=== PATIENT | male | born 1940 | race Caucasian/White ===

== ENCOUNTER 2022-05-21 10:40 | Emergency (ER) | payer MEDICARE, BC, SELFPAY ==
[2022-05-21 10:56] VITALS: BP 160/103; PULSE 61; RESP 22; TEMP 36.6; O2SAT 88; BMI 29.5
[2022-05-21 11:00] VITALS: BP 160/103
--- NOTE | 2022-05-21 11:12 | ED.GENADULT ---
HPI - General Adult General Chief complaint: Shortness of Breath/Dyspnea Stated complaint: Pneumonia/has COPD Time Seen by Provider: 05/21/22 11:04 History of Present Illness HPI narrative: Manjinder is an 82yo male patient with known history of COPD and hypertension that presents emergency department via POV with complaints of increasing shortness of breath and productive cough for approximately 4 days. Patient states that he uses 2 L of nasal cannula oxygen at home, typically at night, for his history of COPD. The patient states recently he has had increasing shortness of breath, as noted, and the cough is productive of yellow sputum. He reports he was in his usual state of health prior to onset of symptoms approximately 4 days prior. He denies fever, chills, or sweats. He denies chest pains or palpitations. He denies nausea, vomiting, or diarrhea. He denies known COVID-19 contacts. He reports he is vaccinated. He has not had a COPD exacerbation in the recent past. He denies other acute concerns or complaints. Related Data Home Medications Medication Instructions Recorded Confirmed acetaminophen 325 mg capsule 650 mg PO Q6H PRN 05/21/22 05/21/22 (Tylenol) aspirin 81 mg tablet,delayed 81 mg PO DAILY 05/21/22 05/21/22 release (Adult Aspirin Regimen) cholecalciferol (vitamin D3) 25 25 mcg PO DAILY 05/21/22 05/21/22 mcg (1,000 unit) chewable tablet (VitaJoy Daily D) ipratropium 20 mcg-albuterol 100 1 puff inhalation Q6H PRN 05/21/22 05/21/22 mcg/actuation mist for inhalation (Combivent Respimat) losartan 50 mg-hydrochlorothiazide 1 tab PO DAILY 05/21/22 05/21/22 12.5 mg tablet omega 5-qwm-kvt-fish oil 1,000 mg 1 cap PO DAILY 05/21/22 05/21/22 (120 mg-180 mg) capsule (Fish Oil) potassium citrate 10 mEq (1,080 10 meq PO DAILY 05/21/22 05/21/22 mg) tablet,extended release propranolol 80 mg capsule,24 80 mg PO Q24H 05/21/22 05/21/22 hr,extended release salmeterol 50 mcg/dose blister 1 inh inhalation BID 05/21/22 05/21/22 powder for inhalation (Serevent Diskus) simvastatin 20 mg tablet 20 mg PO DAILY 05/21/22 05/21/22 tamsulosin 0.4 mg capsule 0.4 mg PO Q24H 05/21/22 05/21/22 Previous Rx's Medication Instructions Recorded doxycycline hyclate 100 mg capsule 100 mg PO BID #20 caps 05/21/22 prednisone 10 mg tablet 10 mg PO DAILY #21 tabs 05/21/22 Allergies Allergy/AdvReac Type Severity Reaction Status Date / Time Unable to Assess Allergy Unverified 05/21/22 11:00 Review of Systems Const: Reports: fatigue and malaise; Denies: fever or chills ENMT: Denies: difficulty swallowing, ear pain or nasal congestion Cardio: Reports: shortness of breath with exertion; Denies: chest pain, palpitations or swelling of feet/ankles Resp: Reports: shortness of breath, cough and change in phlegm color GI: Denies: abdominal pain, nausea, vomiting, diarrhea or difficulty swallowing Musculo: Denies: extremity swelling Neuro: Denies: headache, numbness in extremities, weakness in extremities, lack of coordination, dizziness or confusion Endo: Reports: fatigue PFSH PFSH Social History Smoking Status: Never smoker Do you use any of these nicotine containing products: None Second hand tobacco smoke exposure: No How often do you have a drink containing alcohol: never How often do you have six or more drinks on one occasion: Never AUDIT-C Alcohol total score: 0 Non-prescribed substance use: denies use Exam Const: Vital Signs, click to edit/add: Vital Signs - 24 hr 05/21/22 10:56 Temperature 97.9 F Pulse Rate [Pulse Oximeter] 61 Respiratory Rate 22 Blood Pressure [Ri ght Upper Arm] 160/103 H Pulse Oximetry 88 Oxygen Delivery Me thod Room Air Documenting provider has reviewed patient's vital signs: yes Common normals: no apparent distress, oriented x3, no limitations, healthy appearing, alert and well nourished General appearance: cooperative, comfortable, well kempt and well developed; not in distress and not anxious Orientation/consciousness: Yes awake, Yes oriented to person, Yes oriented to place and Yes oriented to time Neck & C-Spine: Common normals: full ROM and no lymphadenopathy Resp: Common normals: normal respiratory effort, no retractions, no use of accessory muscles and clear to auscultation bilaterally Effort & inspection: able to speak in complete sentences Auscultation: clear to auscultation bilaterally; no crackles, no rales, no rhonchi and no wheezes Cardio: Common normals: regular rate, regular rhythm, S1 normal heart sound and S2 normal heart sound Rate: regular rate Rhythm: regular rhythm Heart sounds: S1 normal and S2 normal GI: Common normals: soft to palpation Palpation: soft and firm Extremity: Common normals: normal to inspection and full ROM Neuro: Common normals: oriented x3 Sensorium/orientation: awake, alert, oriented to person, oriented to place and oriented to time Psych: Common normals: mental status grossly normal, thought process normal, cooperative, affect normal and speech normal Appearance: well kempt Attitude: calm Speech: normal speech Thought process: normal thought process Skin: Common normals: no rashes or lesions noted General skin exam: no rashes or lesions noted Course Course Hospital Course: Edward was evaluated with laboratory studies and imaging with results as noted. Patient reports some improvement in symptoms since onset, no significant change while in ED. Patient's vital signs have remained stable. The results were discussed, and the patient verbalized understanding. Reasons for follow-up or return were discussed. Vital Signs Vital signs: Initial Vital Signs Temperature 97.9 F 05/21/22 10:56 Temperature Source Temporal Artery Scan 05/21/22 10:56 Pulse Rate 61 05/21/22 10:56 Respiratory Rate 22 05/21/22 10:56 Blood Pressure 160/103 H 05/21/22 10:56 Blood Pressure Mean 122 05/21/22 10:56 Blood Pressure Position Sitting 05/21/22 10:56 Pulse Oximetry 88 05/21/22 10:56 Oxygen Delivery Method 05/21/22 10:56 Vital Signs Temperature 97.9 F 05/21/22 10:56 Pulse Rate 61 05/21/22 10:56 Respiratory Rate 22 05/21/22 10:56 Blood Pressure 160/103 H 05/21/22 10:56 Pulse Oximetry 88 05/21/22 10:56 Oxygen Delivery Method 05/21/22 10:56 Temperature 97.9 F 05/21/22 10:56 Pulse Rate 61 05/21/22 10:56 Respiratory Rate 22 05/21/22 10:56 Blood Pressure 160/103 H 05/21/22 10:56 Pulse Oximetry 88 05/21/22 10:56 Oxygen Delivery Method 05/21/22 10:56 Medical Decision Making MDM Narrative Medical decision making narrative: Life-threatening differential diagnoses include COVID and other infectious etiology, COPD exacerbation, pulmonary edema, acute coronary syndromes, pulmonary embolism, pneumonia, and pneumothorax. Other differential diagnosis considerations include asthma, bronchitis, as well as other etiologies. Lab Data Labs: Lab Results 05/21/22 05/21/22 05/21/22 Range/Units 11:08 11:31 11:46 WBC 8.65 (4.50-11.00) K/uL RBC 4.11 L (4.30-5.90) m/uL Hgb 13.6 (13.5-17.5) gm/dL Hct 40.7 (37.0-53.0) % MCV 99 (80-100) fL MCH 33 (26-34) pg MCHC 33 (32-36) gm/dL RDW Coeff of Prerna 12.1 (11.5-15.5) % Plt Count 238 (140-440) K/uL Neut % (Auto) 64.3 (42.0-72.0) % Lymph % (Auto) 23.8 (20-44) % Orange % (Auto) 10.3 (0.0-11.0) % Eos % (Auto) 1.2 (0.0-7.0) % Baso % (Auto) 0.2 (0.0-3.0) % Neut # (Auto) 5.56 (1.7-7.0) K/uL Lymph # (Auto) 2.06 (0.90-2.90) K/uL Orange # (Auto) 0.90 (0.00-0.90) K/UL Eos # (Auto) 0.10 (0.00-0.50) K/uL Baso # (Auto) 0.02 (0.00-0.30) K/uL Abs Immat Gran (auto) 0.02 (0.00-0.30) K/uL Sodium (135-149) mmol/L Potassium (3.6-5.1) mmol/L Chloride (96-114) mmol/L Carbon Dioxide (20-32) mmol/L BUN (7-30) mg/dL Creatinine (0.5-1.5) mg/dL Estimated Creat Clear Estimated GFR ml/min Glucose (60-115) mg/dL Calcium (8.4-10.6) mg/dL SARS-CoV-2 (PCR) Cancelled Negative SARS-CoV-2 Influenza Type A (PCR) Negative PCR FLU A (Negative) Influenza Type B (PCR) Negative PCR FLU B (Negative) RSV (PCR) Negative PCR RSV (Negative) 05/21/22 Range/Units 11:46 WBC (4.50-11.00) K/uL RBC (4.30-5.90) m/uL Hgb (13.5-17.5) gm/dL Hct (37.0-53.0) % MCV (80-100) fL MCH (26-34) pg MCHC (32-36) gm/dL RDW Coeff of Prerna (11.5-15.5) % Plt Count (140-440) K/uL Neut % (Auto) (42.0-72.0) % Lymph % (Auto) (20-44) % Orange % (Auto) (0.0-11.0) % Eos % (Auto) (0.0-7.0) % Baso % (Auto) (0.0-3.0) % Neut # (Auto) (1.7-7.0) K/uL Lymph # (Auto) (0.90-2.90) K/uL Orange # (Auto) (0.00-0.90) K/UL Eos # (Auto) (0.00-0.50) K/uL Baso # (Auto) (0.00-0.30) K/uL Abs Immat Gran (auto) (0.00-0.30) K/uL Sodium 140 (135-149) mmol/L Potassium 4.2 (3.6-5.1) mmol/L Chloride 105 (96-114) mmol/L Carbon Dioxide 30 (20-32) mmol/L BUN 19 (7-30) mg/dL Creatinine 0.9 (0.5-1.5) mg/dL Estimated Creat Clear 55.97 Estimated GFR 85 ml/min Glucose 113 (60-115) mg/dL Calcium 8.7 (8.4-10.6) mg/dL SARS-CoV-2 (PCR) Influenza Type A (PCR) (Negative) Influenza Type B (PCR) (Negative) RSV (PCR) (Negative) Imaging Data Chest x-ray: Attestation: I have reviewed the pertinent imaging results. Radiologist's impression: FINDINGS: Bibasilar parenchymal densities. Some of these are chronic. However, there is new linear density within the right midlung zone. Central pulmonary arteries are enlarged, as before. Tortuosity of the aorta. No pneumothorax. Degenerative changes of both shoulders. No large volume pleural effusion. IMPRESSION: Dependent fibrosis/scarring with mild superimposed infiltrate on the right suspected. ECG Data Attestation: I personally reviewed and interpreted this ECG as follows: (Normal axis, HR 56bpm. Sinus bradycardia with artifact noted. Normal intervals. No previous for comparison.) Discharge Plan Discharge Clinical Impression: Acute infective exacerbation of chronic obstructive airway disease, Hypertension Patient Disposition: Home, Self-Care Condition: Stable Additional Instructions: Thank you for choosing [facility] for your care today. Recommend steroid burst and antibiotics due to COPD exacerbation. You should continue to take controller medication as prescribed. Continue current medications otherwise. You should discuss with your primary physician if you are due for PFT. The patient is qualified for using home O2 at 2L as needed to maintain O2 saturation >90%. The patient is advised to continue nebulizer/MDI treatments at the first sign of worsening of condition to assist with future exacerbations. Your care today was on an emergency basis and is not intended to be a substitute for on-going care with your primary physician. I recommend calling primary care for follow-up in the next 7-10 days for follow-up as needed and to review any labs, testing, or imaging you have had in the Emergency Department. If new or worsening symptoms develop or you have any concerns in the meantime, please call your primary care clinic or return to the ER for re-evaluation. Activity Level: Activity as Tolerated Discharge Diet: Heart Healthy (2 gm sodium, low fat) Prescriptions: New prednisone 10 mg tablet 10 mg PO DAILY Qty: 21 0RF Rx Instructions: 6 tabs day 1, 5 tabs day 2, 4 tabs day 3, 3 tabs day 4, 2 tabs day 5, 1 tab day 6 doxycycline hyclate 100 mg capsule 100 mg PO BID Qty: 20 0RF No Action simvastatin 20 mg tablet 20 mg PO DAILY losartan-hydrochlorothiazide 50-12.5 mg tablet 1 tab PO DAILY tamsulosin 0.4 mg capsule 0.4 mg PO Q24H propranolol 80 mg capsule,extended release 24 hr 80 mg PO Q24H potassium citrate 10 mEq (1,080 mg) tablet extended release 10 meq PO DAILY Serevent Diskus 50 mcg/dose blister with device 1 inh inhalation BID Combivent Respimat 20-100 mcg/actuation mist 1 puff inhalation Q6H PRN aspirin [Adult Aspirin Regimen] 81 mg tablet,delayed release (DR/EC) 81 mg PO DAILY cholecalciferol (vitamin D3) [VitaJoy Daily D] 25 mcg (1,000 unit) tablet,chewable 25 mcg PO DAILY omega 3-kfu-lky-fish oil [Fish Oil] 1,000 mg (120 mg-180 mg) capsule 1 cap PO DAILY acetaminophen [Tylenol] 325 mg capsule 650 mg PO Q6H PRN Follow Up/Referrals: Pardeep Watts MD [Primary Care Provider] - Stand Alone Forms: [facility] Info Instructions
--- NOTE | 2022-05-21 11:13 | CRLHL7_ITS ---
For Patients: As a result of the Century Cures Act, medical imaging exams and procedure reports are released immediately into your electronic medical record. You may view this report before your referring provider. If you have questions, please contact your health care provider. INDICATION: Cough TECHNIQUE: Chest 1 view COMPARISON: 10/23/2014 FINDINGS: Bibasilar parenchymal densities. Some of these are chronic. However, there is new linear density within the right midlung zone. Central pulmonary arteries are enlarged, as before. Tortuosity of the aorta. No pneumothorax. Degenerative changes of both shoulders. No large volume pleural effusion. IMPRESSION: Dependent fibrosis/scarring with mild superimposed infiltrate on the right suspected. Dictated by Jhony Arnold MD @ 05/21/2022 11:47:12 AM (Electronically Signed)
[2022-05-21 11:30] VITALS: BP 158/121; PULSE 56; O2SAT 90
[2022-05-21 12:00] VITALS: BP 99/54; PULSE 53; O2SAT 89
[2022-05-21 12:11] LABS: Basophils Absolute Auto 0.02 K/uL (0.00-0.30); Basophils Percent Auto 0.2 % (0.0-3.0); Eosinophils Percent Auto 1.2 % (0.0-7.0); Hematocrit 40.7 % (37.0-53.0); Hemoglobin* 13.6 gm/dL (13.5-17.5); Immature Granulocytes Abs Auto 0.02 K/uL (0.00-0.30); Lymphocytes Absolute Auto 2.06 K/uL (0.90-2.90); Lymphocytes Percent Auto 23.8 % (20-44); Mean Corpuscular HGB Conc 33 gm/dL (32-36); Mean Corpuscular Hemoglobin 33 pg (26-34); Mean Corpuscular Volume 99 fL (80-100); Monocytes Percent Auto 10.3 % (0.0-11.0); Neutrophils Absolute Auto 5.56 K/uL (1.7-7.0); Neutrophils Percent Auto 64.3 % (42.0-72.0); Platelet Count* 238 K/uL (140-440); RDW Coefficient of Variation % 12.1 % (11.5-15.5); Red Blood Count 4.11 m/uL (4.30-5.90); White Blood Count* 8.65 K/uL (4.50-11.00)
[2022-05-21 12:17] LABS: Chloride* 105 mmol/L (96-114); Sodium* 140 mmol/L (135-149)
[2022-05-21 12:18] LABS: Potassium* 4.2 mmol/L (3.6-5.1)
[2022-05-21 12:20] LABS: Carbon Dioxide* 30 mmol/L (20-32); Creatinine* 0.9 mg/dL (0.5-1.5); Est. Creatinine Clearance* 55.97; Estimated Glomerular Filt Rate 85 ml/min
[2022-05-21 12:21] LABS: Blood Urea Nitrogen* 19 mg/dL (7-30); Calcium* 8.7 mg/dL (8.4-10.6); Glucose* 113 mg/dL (60-115)
[2022-05-21 12:23] LABS: Slide Review Reflex No
[2022-05-21 12:25] LABS: PCR FLU A Negative PCR FLU A (Negative); PCR FLU B Negative PCR FLU B (Negative); PCR RSV Negative PCR RSV (Negative); SARS PCR* Negative SARS-CoV-2 (Negative)
[2022-05-21 12:30] VITALS: BP 110/62; PULSE 55; O2SAT 89
[2022-05-21 13:00] VITALS: BP 150/65; PULSE 50; O2SAT 89
== END 2022-05-21 13:15 | disposition home or self-care (01) ==
PROVIDERS: Emergency Provider Family Medicine; PCP Family Medicine
DX: J44.1 Chronic obstructive pulmonary disease with (acute) exacerbation (principal); I10 Essential (primary) hypertension
CPT/HCPCS: 36415; 71045; 80048; 85025; 87502; 87634; 87635; 93005; 99283; 99285

== ENCOUNTER 2022-12-31 09:00 | Outpatient (CLI) | payer MEDICARE, BC, SELFPAY | END 2022-12-31 09:01 | disposition home or self-care (01) | LOC: INJ CL 09:02 | PROVIDERS: PCP Student in an Organized Health Care Education/Training Program; Visit Provider Family Medicine | DX: M54.16 Radiculopathy, lumbar region (principal); M51.36 Other intervertebral disc degeneration, lumbar region | CPT/HCPCS: 62323; J0702; Q9966 ==

== ENCOUNTER 2023-04-23 08:45 | Outpatient (RCR) | payer MEDICARE, BC, SELFPAY ==
--- NOTE | 2023-03-14 16:30 | PT.OPEX ---
PT [facility] Outpatient Eval PT [facility] Outpatient Eval Start: 03/14/23 11:07 Freq: Status: Active Protocol: Document 03/14/23 11:07 JAIRO (Rec: 03/14/23 16:29 JAIRO [id number]) E-signed By Inge Harris PT Physical Therapy Outpatient Evaluation Insurance Information Recert Due Date 06/08/23 Insurance Name Medicare B,Blue [employer] Medical Diagnosis Left hip bursitis and weakness Treating Diagnosis Left hip pain, limited hip ROM , antalgic gait, hip abductor weakness Referring MD Crawford Subjective Subjective Edward reports to PT with primary complaint of left hip pain with gradual onset over the past couple of years without known injury. He has had MEHDI in 2000. X-ray was performed at last MD visit which showed the ingrowth components remain well placed and well-fixed. Has also had his right hip replaced. He was referred to PT with diagnosis of bursitis and abductor weakness. If he fails conservative treatment he was advised he would be a candidate for a tenotomy. 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 He has had PT in the past years ago without much relief. He has not tried anything else for the pain. He has had injections for his lumbar spine without pain relief. Notes pain can radiate down the front of his left leg to his foot. He is currently having trouble getting in/out of a car, walk > 2 blocks, stand greater than 30 min, squat. Pain Comments 10/10 worst Date of Last Physician Visit 03/05/23 Current Work Status Retired Precautions Therapy Limitations/Systems Review Not Limited Objective Other/Pertinent Objective LE ROM (R/L): -Hip Ext: 0/0 -Hip Flx: 110/105 -Hip ER: 5/0 -Hip IR: 40/40 -Hip Abd: 25/20 LE Strength (R/L): -Hip Abd: R: 4/5, L: 4-/5 -Hip Ext: R: 4/5, L: 4-/5 -Hip Flx: R: 4/5, L: 4-/5 Gait: reverse trendelenburg B (L>R), limited terminal hip extension L Leg length supine: medial malleolus 1/2 longer on left compared to right Palpation: TTP distal glut med insertion Standing posture: L ASIS 1/2 higher than R, L hip shift Functional Test Performed & Score LEFS: 36/80 Assessment Assessment/Impression Patient is an 83 year old male presenting to physical therapy for evaluation and treatment of left hip pain and weakness with history of MEHDI in 2000. Patient presents with limited hip ROM, leg length discrepency, hip abductor weakness, antalgic gait. These impairments are limiting the patients ability to get in/out of a car, walk > 2 blocks, stand greater than 30 min, squat. Patient appears motivated to participate in PT and presents with good prognosis to improve mobility, strength, proprioception and return to functional activities with skilled physical therapy intervention. Primary Functional Limitations get in/out of a car, walk > 2 blocks, stand greater than 30 min, squat Plan of Care Rehabilitation Potential Good Physical Therapy Goals In 4 weeks (04/11/23) Patient will demonstrate/ report ability to walk for 30 minutes on even ground with pain level <4/10, to allow for community and household ambulation Pt will report <4/10 with ADLs including stair negotiation, dressing and getting in/out of a car in order to improve functional mobility In 8 weeks (05/09/23) Pt will reports <2/10 with ADLs including stair negotiation, dressing and getting in/out of a car in order to improve functional mobility Pt will demonstrate at least 4 +/5 strength MMT in glut max & glut med to improve dynamic control with SLS activities and gait. Patient will demonstrate/ report ability to walk for at least 45 minutes on even ground with pain level <2/10, to allow for community and household ambulation Pt will exhibit 9 pt improvement in LEFS Outcome measure to demonstrate functional improvement and progress towards goals. Treatment Plan/Direct Interventions Gait Training,Ice/Cold/ Vasopneumatic,Joint Mobilization,Manual Therapy, Neuromuscular Re-ed,Self-Care/ Home Management,Therapeutic Activities,Therapeutic Exercises Frequency/Duration 1x/wk for 6-8 weeks Patient Will Be Discharged From Therapy Completion of LTG(s), Independent w/HEP, Independently Progressing Evaluation Billing Untimed Code Treatment Minutes 30 Complexity Low Certification Information Initial Certification Date 03/14/23 Ending Certification Date 06/08/23 Provider Signature Shows Agreement With POC & Medical Necessity Physician Signature & Date Requested Please Sign/Date Here Physician Comment/Change : Physician NPI Number #
== END 2023-04-23 10:06 | disposition home or self-care (01) ==
PROVIDERS: PCP Student in an Organized Health Care Education/Training Program; Visit Provider Orthopaedic Surgery
DX: M70.72 Other bursitis of hip, left hip (principal); M25.552 Pain in left hip; R26.9 Unspecified abnormalities of gait and mobility; R53.1 Weakness; Z51.89 Encounter for other specified aftercare
CPT/HCPCS: 97110; 97140; 97161; 97535

== ENCOUNTER 2024-03-02 10:38 | Outpatient (CLI) | payer MEDICARE, BC, SELFPAY | END 2024-03-02 10:39 | disposition home or self-care (01) | LOC: INJ CL 10:38 | PROVIDERS: PCP Student in an Organized Health Care Education/Training Program; Visit Provider Family Medicine | DX: M51.36 Other intervertebral disc degeneration, lumbar region (principal); M54.16 Radiculopathy, lumbar region | CPT/HCPCS: 62323; J0702; Q9966 ==

== ENCOUNTER 2024-07-13 10:38 | Outpatient (CLI) | payer MEDICARE, BC, SELFPAY | END 2024-07-13 10:39 | disposition home or self-care (01) | LOC: INJ CL 10:38 | PROVIDERS: PCP Student in an Organized Health Care Education/Training Program; Visit Provider Family Medicine | DX: M54.16 Radiculopathy, lumbar region (principal); M51.36 Other intervertebral disc degeneration, lumbar region | CPT/HCPCS: 62323; J0702; Q9966 ==

== ENCOUNTER 2025-02-02 11:44 | Outpatient (CLI) | payer MEDICARE, BC, SELFPAY ==
--- NOTE | 2025-02-02 13:07 | P.ANES_ITS ---
Anesthesia Charges Start Date/Time Anesthesia Start Date: 02/02/25 Anesthesia Start Time: 12:34 Stop Date/Time Anesthesia Stop Date: 02/02/25 Anesthesia Stop Time: 13:05 Summary Extremes of Age - Over 70 or under 1: LABOR SPECIALIST Coding CPT Codes CPT Codes: ANEKunal LWR INTST NDSC NOS - 75211 ([id number]) P4 - PT W/SEV SYS DIS THREAT LIFE, QX - LABOR SPECIALIST SVC W/ MD MED DIRECTION, QK - AIR BRUSH ARTIST 2-4 CNCRNT ANES PROC Additional Codes: Summary - Extremes of Age - Over 70 or under 1: LABOR SPECIALIST ([id number])
--- NOTE | 2025-02-02 13:07 | W.ANESCHARGE ---
Anesthesia Charges Start Date/Time Anesthesia Start Date: 02/02/25 Anesthesia Start Time: 12:34 Stop Date/Time Anesthesia Stop Date: 02/02/25 Anesthesia Stop Time: 13:05 Summary Extremes of Age - Over 70 or under 1: TROLLEY COLLECTOR Coding CPT Codes CPT Codes: ANEKunal LWR INTST NDSC NOS - 60592 ([id number]) P4 - PT W/SEV SYS DIS THREAT LIFE, QX - TROLLEY COLLECTOR SVC W/ MD MED DIRECTION, QK - BRIDGE/STRUCTURE INSPECTION TEAM LEADER 2-4 CNCRNT ANES PROC Additional Codes: Summary - Extremes of Age - Over 70 or under 1: TROLLEY COLLECTOR ([id number])
--- NOTE | 2025-02-02 14:50 | P.ANES_ITS ---
Anesthesia Charges Start Date/Time Anesthesia Start Date: 02/02/25 Anesthesia Start Time: 12:34 Stop Date/Time Anesthesia Stop Date: 02/02/25 Anesthesia Stop Time: 13:05 Summary Extremes of Age - Over 70 or under 1: MDA Coding CPT Codes CPT Codes: ELLE LWR INTST NDSC NOS - 35055 ([id number]) P4 - PT W/SEV SYS DIS THREAT LIFE, QK - BLADE CHANGER 2-4 CNCRNT ANES PROC, QX - BUSINESS LAW INSTRUCTOR SVC W/ MD MED DIRECTION Additional Codes: Summary - Extremes of Age - Over 70 or under 1: MDA ([id number])
--- NOTE | 2025-02-02 14:50 | W.ANESCHARGE ---
Anesthesia Charges Start Date/Time Anesthesia Start Date: 02/02/25 Anesthesia Start Time: 12:34 Stop Date/Time Anesthesia Stop Date: 02/02/25 Anesthesia Stop Time: 13:05 Summary Extremes of Age - Over 70 or under 1: MDA Coding CPT Codes CPT Codes: ELLE LWR INTST NDSC NOS - 16273 ([id number]) P4 - PT W/SEV SYS DIS THREAT LIFE, QK - CONSTRUCTION EQUIPMENT OVERHAULER 2-4 CNCRNT ANES PROC, QX - WATER ENGINEER SVC W/ MD MED DIRECTION Additional Codes: Summary - Extremes of Age - Over 70 or under 1: MDA ([id number])
== END 2025-02-02 11:45 | disposition home or self-care (01) ==
LOC: OP CLINIC 11:44
PROVIDERS: PCP Student in an Organized Health Care Education/Training Program; Visit Provider Internal Medicine Gastroenterology
DX: Z12.11 Encounter for screening for malignant neoplasm of colon (principal); D12.0 Benign neoplasm of cecum; D12.2 Benign neoplasm of ascending colon; D12.5 Benign neoplasm of sigmoid colon; K57.30 Diverticulosis of large intestine without perforation or abscess without bleeding; Z86.0100 Personal history of colon polyps, unspecified
CPT/HCPCS: 00811; 45385; 88305; 99100; J2704